=== PATIENT | female | born 1965 | race Caucasian/White ===

== ENCOUNTER 2025-03-27 14:32 | Outpatient (AMB) | payer OTHER, SELFPAY ==
--- NOTE | 2025-03-27 14:32 | A.PHYSOV ---
Vital Signs 03/27/25 14:36 Height 5 ft 7 in Weight 140 lb BMI 21.9 Intake Visit Reasons: 3M Intake Note: Patient is a 59 year old female in the office today for a 3 month medication management visit. 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 She has chronic pain in her neck and lower back, with diagnoses of cervical and lumbar radiculitis. Her history includes a cervical discectomy and fusion, and she currently takes extended-release morphine sulfate 15 mg three times daily. Her past surgical history is also significant for a right femur fracture treated with open reduction internal fixation with a papo. The patient follows with neurology for multiple sclerosis and has a known diagnosis of osteoporosis in her hips. She reports an intermittent catching sensation in her right hip/buttock area that has been present since her femur surgery. She notes that injections for this issue about a year and a half ago were not effective. The patient reports a fall yesterday on black ice, which has resulted in generalized soreness, especially in both legs and her low back. Functionally, she can walk for about half an hour before needing to be pushed due to pain. Regarding her other medical issues, she has poorly controlled diabetes with a recent HbA1c of 8.1. She is on the maximum dose of oral medication, and the next step discussed by her other providers is insulin. The patient reports difficulty adhering to her diet due to multiple restrictions for cholesterol, allergies, and blood sugar, and she has a family history of diabetes on both sides. Pain Description - Location: The patient has chronic pain in her neck and low back. - Acute Pain: She reports generalized soreness, particularly in both legs and the low back, following a fall yesterday. - Specific Symptoms: She notes a regular, intermittent catching sensation in her right SI joint area. - Quality: The sensation in her SI joint is described as a catching that eventually releases. - Exacerbating Factors: Pain is exacerbated by walking longer than 30 minutes and going up stairs. - Functional Limitations: Walking is limited to approximately half an hour. Results - Labs: Recent HbA1c was 8.1. [facility] Medical History (Updated 03/27/25 @ 15:34 by John Pritchard DO) exterminator helper use of opioid Chronic pain syndrome Lumbar radiculitis Cervical radiculitis Recent surgical procedure on lower extremity Surgical History History of tonsillectomy (Unknown) History of neck surgery (Unknown) Social History (Updated 03/24/25 @ 10:15 by Tanisha Izaguirre MA) Household Members: Spouse Alcohol intake: current Alcohol intake frequency: holidays/special occasions only Patient Tobacco Use Status: Former Tobacco user Current occupational status: unemployed Review of Systems Narrative Review of Systems - General: Reports generalized soreness following a fall. - Musculoskeletal: Reports chronic neck and low back pain. - She also reports acute soreness in both legs and her lower back after a fall, and an intermittent catching sensation in her right hip area. - She has a history of osteoporosis in her hips. - Endocrine: Reports poorly controlled diabetes with a recent HbA1c of 8.1. - Reports a family history of diabetes. - Neurological: History of multiple sclerosis and radiculitis. Physical Exam Exam Exam: Physical Exam - Musculoskeletal: Palpation elicits tenderness over the right sacroiliac joint. Neurological examination was nonfocal. Gait was without antalgia. Heel walk and toe walk were not tested. Cervical range of motion was restricted and side bending. Spurling maneuver was negative. Lhermitte's sign was negative. Patient demonstrated no upper motor neuron signs. Vital Signs: BMI result Body Mass Index 21.9 Assessment & Plan Assessment & Plan (1) Cervical radiculitis: Code(s): M54.12 - Radiculopathy, cervical region Category: Medical (2) Lumbar radiculitis: Code(s): M54.16 - Radiculopathy, lumbar region Category: Medical (3) Chronic pain syndrome: Code(s): G89.4 - Chronic pain syndrome Category: Medical (4) exterminator helper use of opioid: Code(s): Z79.891 - exterminator helper (current) use of opiate analgesic Category: Medical Plan Pain Management - Analgesia: The patient is prescribed extended-release morphine sulfate 15 mg, taken three times a day for chronic pain. - Activities of Daily Living: She reports her walking is limited to about half an hour before soreness requires her to be pushed. - Affect: The patient expresses that her health is getting crappier and crappier and feels time is running out to accomplish life plans. - Aberrant Drug Related Behaviors: No aberrant behaviors were discussed; the visit includes a plan for routine medication refills. Plan Patient was informed and verbally consented to the use of an ambient scribe for clinic note documentation during this visit. 1. Chronic Pain Syndrome The patient will continue her current regimen of extended-release morphine sulfate 15 mg three times daily. She was advised to call for refills of her medications, including gabapentin, before April 12, 2025 due to the provider's upcoming leave. 2. Sacroiliac Joint Pain The patient complains of an intermittent catching sensation in the right SI joint, and examination reveals tenderness in that area. Given that prior injections were ineffective and her HbA1c is elevated at 8.1, a steroid injection is not recommended at this time due to the risk of worsening hyperglycemia. As the symptom is intermittent and self-resolving, the plan is to continue observation. 3. Mechanical Fall The patient experienced a fall on ice yesterday, resulting in generalized soreness. The plan is continued observation of her symptoms. 4. Type 2 Diabetes Mellitus With Hyperglycemia The patient's HbA1c is 8.1, indicating poorly controlled diabetes. She is aware that she is on maximal oral therapy and that insulin may be the next step in her treatment. Her hyperglycemia is a contraindication for steroid injections for her SI joint pain. Discussion Notes I reviewed the patient's ongoing chronic pain management, noting her stable use of morphine. We discussed her recent fall and resulting generalized soreness. I palpated her right lower back and confirmed tenderness over the SI joint, which correlates to her complaint of a catching sensation. I explained that a steroid injection for this issue is not advisable currently due to her uncontrolled diabetes (HbA1c of 8.1), as steroids can worsen blood sugar levels. We agreed to monitor the symptom, especially since it is intermittent and previous injections were not helpful. I instructed the patient to call for medication refills before April 12, as I will be out of the office for the holidays. We also spent some time discussing management of narcotic medications. She would like to be able to get off narcotics eventually. She has never been tried on pregabalin. Unfortunately, she reports difficulties with her memory, particularly memory loss and any medication that could help with the pain may have side effect affecting her memory. At this point I do not recommend trials of either pregabalin or gabapentin, she will continue with her management and we will follow up in 3 months. She has been already using less morphine than prescribed. Her prescriptions usually lasts her longer than 4 weeks. Patient Instructions - Continue taking your pain medication, extended-release morphine sulfate 15 mg, three times a day as prescribed. - Please make sure to call my office before April 12 if you need refills for your medications, as I will be on vacation. - We will continue to watch the catching feeling in your right hip area. - We will not do a steroid injection at this time because of your high blood sugar, as the steroid could make it worse. - Continue to follow up with your regular doctor for your diabetes care. Medications: New morphine ER Partial fill upon request 15 mg PO Q8H 84 tabs 0RF Chronic pain syndrome 28 days G89.4 - Chronic pain syndrome, M54.12 - Radiculopathy, cervical region, M54.16 - Radiculopathy, lumbar region Coding Level of Care Code Est Pt Level 4 (38872) Complex visit Add On G2211 Diagnoses Cervical radiculitis M54.12 Lumbar radiculitis M54.16 Chronic pain syndrome G89.4 exterminator helper use of opioid Z79.891
[2025-03-27 14:36] VITALS: BMI 21.9
--- OUTSIDE RECORDS SUMMARY | 2025-03-27 20:25 | XMS_ITS | Clinical Summary ---
Author Organization [facility] Facility Address [address] [place] [id number] Care Team Providers Care Glass Blowing Instructor Name Role Phone Sujey Huizar MD Primary Care Provider Allergies Active Allergy Reactions Criticality Noted Date Comments Clindamycin Hives,Rash Low 01/19/2022 Milk (Cow) Anaphylaxis High 01/19/2022 Other 01/19/2022 seasonal Peanut (Diagnostic) Other (see comments) 2021 Headache and congestion Oxycodone-Acetaminoph en 01/19/2022 Medications atorvastatin (LIPITOR) 20 MG tablet Take 1 tablet by mouth 1 (one) time each day 3 Active azelastine (ASTELIN) 0.1 % nasal spray Administer 274 mcg into affected nostril(s) 2 (two) times a day 1 Active busPIRone (BUSPAR) 10 MG tablet Take 1 tablet by mouth in the morning and 1 tablet at noon and 1 tablet in the evening. 8 Active Calcium 250 MG capsule Take 250 mg by mouth 1 (one) time each day Active dronabinol (MARINOL) 5 MG capsule Take 5 mg by mouth in the morning and 5 mg in the evening. 8 Active gabapentin (NEURONTIN) 300 MG capsule Take 600 mg by mouth in the morning and 600 mg at noon and 600 mg in the evening. 5 Active hydrOXYzine (ATARAX) 50 MG tablet Take 50 mg by mouth every 8 (eight) hours if needed 5 Active levothyroxine (SYNTHROID, LEVOTHROID) 50 MCG tablet Take 1 tablet by mouth 1 (one) time each day 2 Active Magnesium Oxide -Mg Supplement 400 MG capsule Take 1 capsule by mouth 1 (one) time each day 0 Active metFORMIN (GLUCOPHAGE) 500 MG tablet Take 1 tablet by mouth 1 (one) time each day 3 Active metoprolol succinate XL (TOPROL XL) 25 MG 24 hr tablet Take 1 tablet by mouth 1 (one) time each day 1 Active morphine (MS CONTIN) 15 MG 12 hr tablet Take 1 tablet by mouth every 8 (eight) hours 1 Active rOPINIRole (REQUIP) 1 MG tablet Take 1 mg by mouth 1 (one) time each day 2 Active aspirin (ST LALO) 81 MG EC tablet Take 81 mg by mouth 1 (one) time each day Active Teriflunomide (Aubagio) 14 MG tablet Take 14 mg by mouth 1 (one) time each day Active Multiple Vitamins-Minera ls (PRESERVISION AREDS 2 PO) Take 1 tablet by mouth 1 (one) time each day Active Multiple Vitamin (multivitamin) tablet Take 1 tablet by mouth 1 (one) time each day Active rOPINIRole (REQUIP) 1 MG tablet Take 1 mg by mouth in the morning and 1 mg in the evening and 1 mg before bedtime. Active Active Problems Problem Noted Date Diagnosed Date Stage 3a chronic kidney disease 01/19/2022 Atrophy of kidney 01/19/2022 Hypertension 01/19/2022 Type 2 diabetes mellitus without complication Fibromyalgia 01/19/2022 Family History Medical History Relation Comments Heart disease Father Diabetes Mother Relation Status Comments Father Mother Social History Tobacco Use Types Packs/Day Years Used Date Smoking Tobacco: Former Cigarettes Smokeless Tobacco: Never Tobacco Cessation:Counseling Given: Not Answered Alcohol Use Standard Drinks/Week Comments Not Currently 0 (1 standard drink = 0.6 oz pur e alcohol) Comments Unknown Sex and Gender Information Value Date Recorded Sex Assigned at Not on file Legal Sex Female 1:55 PM EST Gender Identity Not on file Sexual Orientation Not on file Last Filed Vital Signs Vital Sign Reading Time Taken Comments Blood Pressure 116/70 08/15/2022 10:55 AM EDT Pulse 78 08/15/2022 10:55 AM EDT Temperature - - Respiratory Rate - - Oxygen Saturation 96% 08/15/2022 10:55 AM EDT Inhaled Oxygen Concentration - - Weight 49.5 kg (109 lb 3.2 oz) 08/15/2022 10:55 AM EDT Height 167.6 cm (5' 6 ) 08/15/2022 10:55 AM EDT Body Mass Index 17.63 08/15/2022 10:55 AM EDT Plan of Treatment Health Maintenance Due Date Last Done Comments Breast Cancer Screening 1965 Pneumococcal Vaccine: 50+ Years (2 of 2 - PCV) 10/11/2012 10/12/2011 Colorectal Cancer Screening: Annual FOBT 11/18/2012 Colorectal Cancer Screening: Colonoscopy 11/18/2012 Colorectal Cancer Screening: Sigmoidoscopy 11/18/2012 Diabetes: Hemoglobin A1C 01/19/2022 Diabetes: Ophthalmology Exam 01/19/2022 Diabetes: Pedal Pulse Checked 01/19/2022 Diabetes: Sensory Foot Exam 01/19/2022 Diabetes: Visual Foot Exam 01/19/2022 Influenza Vaccine (#1) 2024 9, 02/09/2018, 02/17/2017 Pneumococcal Vaccine: Peds ( 0 to 5 Years) and At-Risk Patients (6 to 49 Years) Discontinued 10/12/2011 Hepatitis B Vaccine Aged Out 10/17/2017, 02/17/2017 No longer eligible based on patient's age to complete this topic Insurance [facility] Care Teams Glass Blowing Instructor Relationship Specialty Start Date End Date Sujey Huizar MD PCP - General Family Medicine 08/15/22
--- OUTSIDE RECORDS SUMMARY | 2025-03-27 20:25 | XMS_ITS ---
Author Name [facility] Organization Unknown Care Team Organization Name Specialty Phone Email Start Date End Da te [facility] Sujey Huizar MD Primary Care 03/01/2022 12/11/2023
--- OUTSIDE RECORDS SUMMARY | 2025-03-27 20:25 | XMS_ITS | Clinical Summary ---
Author Organization [facility] Prior to 09/21/[address] [place] [id number] Care Team Providers Care Personnel Analyst Name Role Phone Unavailable Primary Care Provider Unavailabl e Allergies Active Allergy Reactions Criticality Noted Date Comments Clindamycin 08/10/2021 Oxycodone-Acetaminophen Itching 12/28/2010 Medications Medication Sig Dispensed Refills Start Date End Date Status aspirin 81 MG EC tablet Take 1 tablet by mouth daily. 0 03/23/2021 Active Morphine Sulfate ER (MS CONTIN) 15 MG TBCR Take 1 tablet by mouth. 0 10/22/2020 Active metoprolol succinate (TOPROL-XL) 24 hr tablet 25 mg Take 1 tablet by mouth daily. 0 03/22/2021 Active Magnesium Oxide -Mg Supplement 400 MG CAPS Take 1 capsule by mouth daily. 0 12/05/2019 Active levothyroxine (SYNTHROID) tablet 50 mcg TAKE ONE TABLET BY MOUTH EVERY DAY 0 07/13/2021 Active hydrOXYzine (ATARAX) 50 MG tablet Take 50 mg by mouth 3 (three) times a day. 0 04/20/2015 Active gabapentin (NEURONTIN) 600 MG tablet Take 1 tablet by mouth 3 (three) times a day. 0 06/16/2020 Active dronabinol (MARINOL) 5 MG capsule Take 5 mg by mouth. 0 12/13/2017 Active busPIRone (BUSPAR) 10 MG tablet Take 1 tablet by mouth 3 (three) times a day. 0 12/13/2017 Active azelastine (ASTELIN) 0.1 % nasal spray spray or apply 274 mcg inside Nose. 0 06/23/2020 Active vitamin D3 (CHOLECALCIFEROL) 125 MCG (5000 UT) capsule Take 125 mcg by mouth daily. 0 Active Multiple Vitamin (MULTIVITAMIN ADULT PO) Take by mouth. 0 Active Multiple Vitamins-Minerals (PRESERVISION AREDS PO) Take by mouth. 0 Active rOPINIRole (REQUIP) 1 MG tablet 0 02/15/2022 Active Family History Medical History Relation Name Comments Diabetes Mother Leukemia Mother Relation Name Status Comments Mother Social History Tobacco Use Types Packs/Day Years Used Date Smoking Tobacco: Never Smokeless Tobacco: Never Tobacco Cessation:Counseling Given: Not Answered Sex and Gender Information Value Date Recorded Sex Assigned at Female 10/15/2021 10:03 AM EDT Gender Identity Not on file Sexual Orientation Not on file Job Start Date Occupation Industry Not on file Not on file Not on file Last Filed Vital Signs Vital Sign Reading Time Taken Comments Blood Pressure 125/80 02/17/2022 11:12 AM EDT Pulse 74 02/17/2022 11:12 AM EDT Temperature 36.2 C (97.2 F) 02/17/2022 11:12 AM EDT Respiratory Rate 16 09/08/2021 1:06 PM EDT Oxygen Saturation 97% 02/17/2022 11: 12 AM EDT Inhaled Oxygen Concentration - - Weight 55.2 kg (121 lb 12.8 oz) 022 11:12 AM EDT Height 167.6 cm (5' 6 ) 02/17/2022 11:1 2 AM EDT Body Mass Index 19.66 02/17/2022 11:12 AM EDT Plan of Treatment Health Maintenance Due Date Last Done Comments Hepatitis C Screening 1965 COVID-19 Vaccine (#1) 05/21/1964 Depression Screening 1975 Preventative Health Evaluation 11/18/1981 Cervical Cancer Screening (Pap Smear) 11/18/1984 Colon Cancer Screening (Colonoscopy) 11/18/2008 Breast Cancer Screening (Mammogram) 11/18/2013 DTap / Tdap / Td (2 - Td or Tdap) 11/10/2020 11/10/2010 Shingrix-Zoster Vaccine (2 of 2) 10/09/2021 08/14/2021 Influenza Vaccine (#1) 2024 9, 02/09/2018, 02/17/2017, Additional history exists RSV Adult > 60+ Yrs or (1 - 1-dose 75+ series) 11/18/2038 Pneumococcal Vaccine Aged Out 10/12/2011 No long er eligible based on patient's age to complete this topic Hepatitis B Vaccines Aged Out No long er eligible based on patient's age to complete this topic RSV Ped < 20 months Aged Out No longe r eligible based on patient's age to complete this topic
== END 2025-03-27 14:54 | disposition home or self-care (01) ==
LOC: HO.HPHYS 14:32
PROVIDERS: PCP Family Medicine; Visit Provider Physical Medicine & Rehabilitation
DX: M54.12 Radiculopathy, cervical region (principal); M54.16 Radiculopathy, lumbar region; G89.4 Chronic pain syndrome; Z79.891 Long term (current) use of opiate analgesic
CPT/HCPCS: 99214; G2211